=== PATIENT | female | born 2000 | race Caucasian/White ===

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

== ENCOUNTER 2019-07-14 17:33 | Emergency (ER) | payer OTHER, BC ==
[~2019-07-14] VITALS: Ht 167.6 cm; Wt 54.4 kg
[2019-07-14] MEDS ORDERED: BUPR75 PO (20:18)
[2019-07-14] MEDS ORDERED: Robaxin-750750 MG PO ×2 (21:12→21:23)
== END 2019-07-14 21:22 | disposition home or self-care (01) ==
LOC: ER 17:33
DX: M54.2 Cervicalgia (principal); R07.9 Chest pain, unspecified; M54.9 Dorsalgia, unspecified; Z79.899 Other long term (current) drug therapy; V89.2XXA Person injured in unspecified motor-vehicle accident, traffic, initial encounter
CPT/HCPCS: 71046; 72040; 72100; 96372; 99283-25; J1885

== ENCOUNTER → 2023-12-14 | Outpatient (CLI) | payer BC ==
[~2023-12-14] MED LIST: BUPR75 PO; Robaxin-750750 MG PO
[2023-12-14 16:16] LABS: BASOPHILS ABSOLUTE AUTO 0.07 K/mm3 (0.00-0.23); BASOPHILS PERCENT AUTO 1 % (0-2); EOSINOPHILS ABSOLUTE AUTO 0.32 K/mm3 (0.00-0.68); EOSINOPHILS PERCENT AUTO 4 % (0-6); Hematocrit 40.4 % (33.0-51.0); Hemoglobin 13.7 g/dL (11.5-16.0); IMMATURE GRAN ABSOLUTE AUTO 0.04 K/mm3 (0.00-0.10); IMMATURE GRAN PERCENT AUTO 1 % (0-1); LYMPHOCYTES ABSOLUTE AUTO 2.43 K/mm3 (0.84-5.20); LYMPHOCYTES PERCENT AUTO 31 % (21-46); MONOCYTES PERCENT AUTO 8 % (4-13); Mean Corpuscular HGB 29.1 pg (26.0-34.0); Mean Corpuscular HGB Conc 33.9 g/dL (31.5-36.5); Mean Corpuscular Volume 86 fL (80-100); Mean Platelet Volume 9.9 fL (9.1-12.4); NEUTROPHILS PERCENT AUTO 56 % (41-73); Platelet Count 281 K/mm3 (150-400); RDW Coefficient Variation 12.8 % (11.7-14.2); RDW Standard Deviation 39.7 fL (35.1-46.3); Red Blood Cell Count 4.71 M/mm3 (3.80-5.20); White Blood Cell Count 7.86 K/mm3 (4.00-11.30)
[2023-12-14 23:16] LABS: Free Thyroxine 1.02 ng/dL (0.70-1.60)
[2023-12-14 23:19] LABS: Thyroid Stimulating Hormone 1.73 uIU/mL (0.360-4.800); Triiodothyronine, Free 3.37 pg/mL (2.18-3.98)
[2023-12-15 16:53] LABS: THYROID PEROXIDASE (TPO) AB 0.3 IU/mL (0.0-9.0)
== END | disposition home or self-care (01) ==
LOC: LAB SHORT 11:50
PROVIDERS: Registered Nurse Community Health
DX: N92.0 Excessive and frequent menstruation with regular cycle (principal)
CPT/HCPCS: 84439; 84443; 84481; 85025; 86376